=== PATIENT | male | born 1995 | race Caucasian/White ===

== ENCOUNTER 2017-03-03 15:36 | Emergency (ER) | payer OTHER ==
[~2017-03-03] VITALS: Ht 175.3 cm; Wt 112.3 kg
[~2017-03-03 15:36] MED LIST: HYDR-4003 PO; IMI100 PO; PENI500T PO; PROC25SU30 RC
[2017-03-03 15:41] VITALS: BP 147/92; PULSE 66; RESP 18; O2SAT 99
--- NOTE | 2017-03-03 17:58 | ED.REPORT ---
HPI-Dental/Mouth Prob Date of Service Mar 03, 2017 ED Provider: Curtis Jansen DO Pt is an otherwise healthy 21 year old male who presents to the ED complaining of tooth pain onset yesterday. He reports that 3 teeth started hurting last night, and one has been rotting for 2 months. The pt reports that he has an appointment with [facility] tomorrow at 14:45, but he was referred to the ED to get wants antibiotics and pain medication until then. Nursing Notes Stated Complaint: TOOTH PAIN/SENT FROM [facility] Chief Complaint: Dental Nursing Notes Reviewed: Yes Allergies: Coded Allergies: No Known Allergies (Verified Allergy, Unknown, 03/03/17) Scheduled Penicillin V Potassium (Penicillin V Potassium) 500 Mg Tablet 500 MG PO QID Scheduled PRN Hydrocodone-Acetaminophen 5-325 mg (Hydrocodone-Acetaminophen 5-325 mg) 1 Each Tablet 1 TABLET PO Q4H PRN PRN For Pain Prochlorperazine Maleate (Compazine Suppository) 25 Mg Supp.rect 25 MG RC Q8 PRN PRN For Nausea/Vomiting Sumatriptan (Imitrex) 100 Mg Tablet 100 MG PO DAILY PRN PRN migraine General Time Seen by MD: 17:58 Chief Complaint Tooth pain Hx Obtained From: Patient Arrived By: Walk-in Onset Occurred: Yesterday Symptom Duration: Since onset Quality: Painful Severity: Current: Moderate Severity: Maximum: Moderate Recent Healthcare: No recent doctor visit, No recent hospitalization Similar Sx Previous: Yes Past Medical History Past Medical History Heart murmurs Childhood epilepsy Hx suicide attempts- Overdose on Keppra and Hanging PTSD Anxiety Depression Denies: Congestive heart failure, Diabetes mellitus, Hypertension Reports: Seizure disorder Past Surgical History None Family History none contributory Smoking History Light Tobacco Smoker Social History Alcohol Use: "Social" Drug Use: THC Other Social History: Local resident Ambulatory Status Independent Review of Systems + Tooth pain Constitutional: Denies: Fever Respiratory: Denies: Non-productive cough, Shortness of breath Complete sys rev & neg: except as marked. Physical Exam Initial Vital Signs Vital Signs (First) Date Time Temp Pulse Resp B/P Pulse Ox O2 Delivery O2 Flow Rate FiO2 03/03/17 15:41 36.2 66 18 147/92 99 Room Air Initial VS: Reviewed Head / Eyes: Atraumatic, Normocephalic, PERRL Respiratory: Breath sounds normal, Clear to auscultation, No respiratory distress Cardiovascular: Regular rate & rhythm, Heart sounds normal, Intact distal pulses Abdomen / GI: Soft, Non-tender Extremities: Vascular intact, Neuro intact Skin: Warm, Dry, No cyanosis Neurologic: Alert, Oriented, Nonfocal Psychiatric: Mood/affect normal, Behavior normal ENT: Atraumatic, Airway patent, Mucous membranes moist, Pharynx NL Extraordinary tender mandibular. No edema. Mild buccal cellulitis. No barony edema of floor of the mouth. No adenopathy. Neck: Atraumatic, Full range of motion General/Constitutional: Awake, Alert, Cooperative, Not toxic appearing Re-Eval/Medical Decision Med Decision/Clinical Course Exquisitely tender left mandibular molars. No evidence of an abscess. No evidence of Jarred angina. No stridor trismus or drooling. I had a nice discussion with him regarding his prior suicidality. She states that he has been mentally well for many months he has no suicidal ideations. He assures me that if he is provided with opiate pain relievers he has no intention of harming himself. He has follow-up with [facility] dentistry tomorrow and I think this is appropriate. Routine dental infection and opiate aftercare instructions were given. Source of Hx: Old records Re-Evaluation/Progress : Time of Eval: 18:41 Re-Evaluation/Progress Note: Pt rechecked. Informed pt of plan for discharge. Pt understands and agrees with plan for discharge. F/U instructions and RTER warnings given. All questions addressed. Counseled Regarding: Diagnosis, Need for follow-up, When/why to return to ED Discharge & Departure Primary Impression: Dental infection Disposition: Home Discharge Condition All VS Reviewed: Yes Condition: Stable Patient Instructions: Dental Abscess (ED), Dental Caries (ED) Additional Instructions: Augmentin twice daily for 7 days. Take this with food to prevent nausea. Percocet one every 6 hours as needed for severe pain. This is an opiate with acetaminophen. This can be habit forming so use it sparingly and only for severe symptoms. Do not take any other acetaminophen-containing products. Do not drink alcohol with taking the Percocet. Keep your dental follow-up. Return if any problems or any new or worrisome symptoms. Referrals: Keira Mi (PCP) Scribe Attestation Portions of this note were transcribed by Yeni Adams. I, Dr. Jansen personally performed the history, physical exam and medical decision-making; I reviewed and confirmed the accuracy of the information in the transcribed note. Signed by: Kevin Rios, 03/03/17 and 18:50. copies to: Keira Mi Todd P DO Mar 03, 2017 17:58 Yeni Jacobs Mar 03, 2017 18:09
[2017-03-03 18:15] VITALS: BP 147/92; PULSE 66; RESP 18; O2SAT 99
== END 2017-03-03 18:16 | disposition home or self-care (01) ==
LOC: SED 15:36
DX: K04.7 Periapical abscess without sinus (principal); F43.10 Post-traumatic stress disorder, unspecified; F41.9 Anxiety disorder, unspecified; F17.200 Nicotine dependence, unspecified, uncomplicated